=== PATIENT | female | born 1965 | race Caucasian/White ===

== ENCOUNTER 2020-02-28 10:31 | Outpatient (CLI) | payer OTHER, SELFPAY ==
--- NOTE | ~2020-02-28 | MM_ITS ---
EXAMINATION: MM screening [facility] BI w yuly HISTORY: Screening TECHNIQUE: Craniocaudal and mediolateral oblique 3-D tomosynthesis images were obtained and synthetic 2-D images were generated. CAD analysis was submitted and interpreted. COMPARISON: Comparison to multiple prior studies sequentially, with oldest reviewed study dated 11/2012. BREAST PARENCHYMAL COMPOSITION: There are scattered areas of fibroglandular density. FINDINGS: Bilateral breast asymmetries are stable. There is no evidence of suspicious mass, calcifica tion, or architectural distortion to suggest malignancy in either breast. There has been no suspiciou s interval change. IMPRESSION: 1. No mammographic evidence of malignancy. 2. Recommend routine screening mammography in one year. BI-RADS Category 2: Benign finding(s). Reviewed, dictated and finalized at location A.
== END 2020-02-28 10:32 | disposition home or self-care (01) ==
PROVIDERS: PCP Family Medicine; Visit Provider Family Medicine
DX: Z12.31 Encounter for screening mammogram for malignant neoplasm of breast (principal)
CPT/HCPCS: 77063; 77067

== ENCOUNTER → 2020-08-31 00:44 | Outpatient (CLI) | payer OTHER, SELFPAY ==
[2020-08-31 19:48] LABS: SARS-CoV-2 RNA PCR Negative
== END ==
PROVIDERS: PCP Physician Assistant; Visit Provider Internal Medicine Gastroenterology
DX: Z01.812 Encounter for preprocedural laboratory examination (principal); Z20.828 Contact with and (suspected) exposure to other viral communicable diseases
CPT/HCPCS: C9803; U0003; U0005

== ENCOUNTER 2020-09-04 01:08 | Day surgery (SDC) | payer OTHER, SELFPAY ==
[2020-08-22 10:03] VITALS: BMI 28.8
[2020-09-04 11:12] VITALS: BP 142/88; PULSE 97; RESP 22; TEMP 37; O2SAT 98; BMI 28.6
[2020-09-04] MEDS: LACTATED RINGERS 1,000 ML 150 ML IV CONT (11:36)
--- NOTE | 2020-09-04 12:17 | WPDGICN ---
GI Consult Note Consult date/time: 09/04/20 12:17 HPI: Reason for visit is colonoscopy. Impression: Screening colonoscopy. HLD. Hypothyroidism. Recommendation: Colonoscopy. History: This very pleasant lady is being evaluated for colon cancer polyp screening. GI review systems negative. This is her 1st colonoscopy. Physical examination: General: very pleasant patient in no acute distress. HEENT: Head was normocephalic sclerae is clear mouth without masses neck was supple. Heart: Rate rhythm regular without S3 or S4. Lungs: CTA. Abdomen: Soft with no guarding or rigidity. Bowel sounds were active. Neurologic: Cranial nerves 2 through 12 intact. No focal defects. No clonus. Musculoskeletal system: Revealed no joint tenderness or swelling no muscle atrophy. Extremities: Reveal no significant edema. Skin: Warm and dry with normal turgor. Mental status: intact. Patient is alert and oriented. Review of Systems Review of Systems: All systems reviewed & are unremarkable except as noted in HPI and below PMFSH Past Medical History Medical History Chronic left sacroiliac joint pain Hypercholesterolemia Hyperlipidemia LDL goal <100 Hypothyroidism Hypothyroidism determined by thyroid function test Family History Family History Father Acute myocardial infarction Mother Family history of kidney disease Grandparent Family history of malignant neoplasm of breast in first degree relative Social History Social History Smoking status: Never smoker Second hand tobacco smoke exposure: No Alcohol intake: current Substance use: never Substance use type: does not use Living arrangements: with family Gender identity (if verbalized by the patient): Female Spiritual care concerns: No Meds Home Medications and Allergies Home Medications Medication Instructions Recorded Confirmed Type atorvastatin 20 mg tablet 20 mg PO DAILY #90 tablet 08/13/20 08/22/20 Rx levothyroxine 50 mcg tablet 50 mcg PO DAILY #90 tablet 08/13/20 08/22/20 Rx levothyroxine 75 mcg tablet 75 mcg PO 3XW #90 tablet 08/13/20 08/22/20 Rx Fish Oil-Vit D3 2 cap PO DAILY 08/22/20 08/22/20 History Women's 50 Plus Multivitamin 1 cap PO DAILY 08/22/20 08/22/20 History calcium carbonate [Calcium 600] 600 mg PO DAILY 08/22/20 08/22/20 History Allergies Allergy/AdvReac Type Severity Reaction Status Date / Time No Known Allergies Allergy Unknown Unverified 09/04/20 11:11 Vital Signs Vital Signs - 24 hr 09/04/20 11:12 Temperature 37.0 C Pulse Rate 97 Respiratory Rate 22 H Blood Pressure 142/88 H Pulse Oximetry 98
[2020-09-04 12:41] VITALS: BP 96/64; PULSE 86; RESP 22; O2SAT 96
[2020-09-04 12:51] VITALS: BP 105/73; PULSE 74; RESP 20; O2SAT 97
[2020-09-04 13:01] VITALS: BP 117/81; PULSE 76; RESP 18; O2SAT 98
== END 2020-09-04 13:19 | disposition home or self-care (01) ==
PROVIDERS: PCP Physician Assistant; Visit Provider Internal Medicine Gastroenterology
PROC: 0DJD8ZZ Inspection of Lower Intestinal Tract, Via Natural or Artificial Opening Endoscopic (ICD-10-PCS; CPT 45378; principal; 2020-09-04 12:30)
DX: Z12.11 Encounter for screening for malignant neoplasm of colon (principal); K57.30 Diverticulosis of large intestine without perforation or abscess without bleeding; E78.5 Hyperlipidemia, unspecified; E03.9 Hypothyroidism, unspecified
CPT/HCPCS: 45378; J2001; J2704; J7120

== ENCOUNTER 2021-05-13 14:41 | Outpatient (CLI) | payer OTHER, SELFPAY ==
--- NOTE | ~2021-05-13 | MM_ITS ---
EXAMINATION: MM screening [facility] BI w yuly HISTORY: Screening mammogram TECHNIQUE: Craniocaudal and mediolateral oblique 3-D tomosynthesis images were obtained and synthetic 2-D images were generated. CAD analysis was submitted and interpreted. COMPARISON: 02/28/2020, 10/19/2018, 07/23/2017 BREAST PARENCHYMAL COMPOSITION: There are scattered areas of fibroglandular density. FINDINGS: There is no evidence of suspicious mass, calcification, or architectural distortion to sugg est malignancy in either breast. There has been no suspicious interval change. IMPRESSION: 1. No mammographic evidence of malignancy. 2. Recommend routine screening mammography in one year. BI-RADS Category 1: Negative Reviewed, dictated and finalized at location A. NDER FEEDER
== END 2021-05-13 14:42 | disposition home or self-care (01) ==
PROVIDERS: Visit Provider Family Medicine
DX: Z12.31 Encounter for screening mammogram for malignant neoplasm of breast (principal)
CPT/HCPCS: 77063; 77067

== ENCOUNTER 2022-04-22 14:57 | Outpatient (CLI) | payer OTHER, SELFPAY ==
--- NOTE | ~2022-04-22 | DEXA_ITS ---
Bone Density Report Name: CLARISSE RODRIGUEZ Age: 57 Sex: Female Ethnicity: White Date of : 1965 Indication: postmenopausal; screening for osteoporosis; Referring Provider: FAIZAN HERRING Study: Bone densitometry was performed. Exam Date: April 22, 2022 Accession number: [id number] Bone Density: Region BMD T-score Z-score Classification AP Spine(L1-L4) 0.985 -0.6 0.5 Normal Femoral Neck (Left) 0.827 -0.2 0.9 Normal Total Hip (Left) 0.977 0.3 1.0 Normal Femoral Neck (Right) 0.812 -0.3 0.7 Normal Total Hip (Right) 0.944 0.0 0.7 Normal Total Hip Mean 0.961 0.2 0.9 Normal World Health Organization criteria for BMD impression classify patients as: Normal (T-score at or above -1.0), Osteopenia (T-score between -1.0 and -2.5), or Osteoporosis (T-score at or below -2.5). 10-year Fracture Risk: FRAX not reported because: All T-scores for Spine Total, Hip Total, Femoral Neck at or above -1.0 Clinical Information Provided by Patient: Has used the following medications: Calcium Patient maximum height was 65.5 Menopause Age: 52 Onset of menses at age 18 Number of children 2 Impression: The patient has normal bone mass. Discussion: BONE DENSITY IS ABOVE THE MINIMUM DESIRABLE LEVEL AT ALL SKELETAL SITES TESTED. This patient?s bone mineral density is above the minimum desirable level (T-score -1.0 or better) at all sites measured. The patient should follow a healthful lifestyle (good nutrition with adequate calcium and vitamin D, and appropriate weight-bearing exercise). Follow-Up: Consider repeating this study in 5 years or sooner if there is some new clinical indication. Reported by: [facility] on 04/22/2022 3:21:00 PM. Reviewed, dictated and finalized at location A. [facility]
== END 2022-04-22 14:58 | disposition home or self-care (01) ==
PROVIDERS: PCP Family Medicine; Visit Provider Family Medicine
DX: Z78.0 Asymptomatic menopausal state (principal)
CPT/HCPCS: 77080

== ENCOUNTER → 2022-08-25 08:26 | Outpatient (CLI) | payer OTHER, SELFPAY ==
--- NOTE | ~2022-08-25 | CT_ITS ---
EXAMINATION: CT pelvis wo con DATE: 08/25/2022 08:38 INDICATION: Chronic left groin pain TECHNIQUE: Computed tomography (CT) of the pelvis was performed without intravenous contrast. The dos e-length product was 384.00 mGy-cm. Automated exposure control and iterative reconstruction technique were employed. Automated exposure control and iterative reconstruction technique were employed. COMPARISON: None FINDINGS: Nonobstructive bowel pattern. Normal appendix. Colonic diverticulosis without evidence for diverticulitis. No abnormal pelvic masses or fluid collections. No free air. Mild lumbar spondylosis. No evidence for hernia. Bladder is unremarkable. IMPRESSION: 1. No acute abnormality. No findings to explain patient's symptoms. Reviewed, dictated and finalized at location D. RT PRE COOKER
== END ==
PROVIDERS: PCP Family Medicine; Visit Provider Surgery
DX: R10.32 Left lower quadrant pain (principal)
CPT/HCPCS: 72192

== ENCOUNTER 2022-11-05 12:50 | Outpatient (CLI) | payer OTHER, SELFPAY ==
--- NOTE | ~2022-11-05 | MM_ITS ---
EXAMINATION: MM screening [facility] BI w yuly HISTORY: Screening mammogram TECHNIQUE: Craniocaudal and mediolateral oblique 3-D tomosynthesis images were obtained and synthetic 2-D images were generated. CAD analysis was submitted and interpreted. COMPARISON: 05/13/2021, 02/28/2020, 10/19/2018 BREAST PARENCHYMAL COMPOSITION: There are scattered areas of fibroglandular density. FINDINGS: No suspicious mass, calcification, or architectural distortion are identified in either yung ast to suggest malignancy. There has been no suspicious interval change. IMPRESSION: 1. No mammographic evidence of malignancy. 2. Recommend routine screening mammography in one year. BI-RADS Category 1: Negative Reviewed, dictated and finalized at location A.
== END 2022-11-05 12:51 | disposition home or self-care (01) ==
LOC: ANHIMG 12:52
PROVIDERS: PCP Family Medicine; Visit Provider Family Medicine
DX: Z12.31 Encounter for screening mammogram for malignant neoplasm of breast (principal)
CPT/HCPCS: 77063; 77067

== ENCOUNTER 2023-10-02 16:35 | Emergency (ER) | payer OTHER, SELFPAY ==
--- NOTE | ~2023-10-02 | XR_ITS ---
EXAM: XR finger 4th RT min 2V DATE: 10/02/2023 17:51 HISTORY: laceration . COMPARISON: None available. FINDINGS: Normal mineralization. Minimally comminuted fracture at the tip of the right fourth distal tuft. No lytic or blastic lesion. Joint spaces and physes are maintained. No erosion or periosteal c hange. Soft tissue laceration over the fracture site. IMPRESSION: Minimally comminuted fracture at the tip of the right fourth distal tuft. Reviewed, dictated and finalized at location K.
[2023-10-02 16:42] VITALS: BP 140/87; PULSE 86; RESP 16; TEMP 37.1; O2SAT 97
--- NOTE | 2023-10-02 16:43 | ED.WOUNDLAC ---
HPI - Wound/Laceration General Chief Complaint: Wound/Laceration Stated Complaint: Cut Finger Rt Hand Time Seen by Provider: 10/02/23 16:43 Source: patient Mode of arrival: ambulatory Limitations: no limitations History of Present Illness HPI narrative: 58 yo F presents with laceration to R ring finger. Reached under lawnmower while it was running to clean out clogged grass and blade cut her finger. ROM and distal NV intact. Bleeding on arrival. Tetanus UTD. All systems reviewed and negative except as noted above. Related Data Home Medications Medication Instructions Recorded Confirmed Fish Oil-Vit D3 2 cap PO DAILY 08/22/20 10/02/23 Women's 50 Plus Multivitamin 1 cap PO DAILY 08/22/20 10/02/23 calcium carbonate 600 mg calcium 600 mg PO DAILY 08/22/20 10/02/23 (1,500 mg) tablet (Calcium) Allergies Allergy/AdvReac Type Severity Reaction Status Date / Time No Known Allergies Allergy Unknown Verified 10/02/23 16:37 Review of Systems Review of Systems: CONSTITUTIONAL: Denies fever, chills, or sweats. EYES: Denies visual changes, redness, or discharge. ENT: Denies rhinorrhea, congestion, sore throat, or otalgia. CARDIOVASCULAR: Denies chest pain, palpitations, or edema. RESPIRATORY: Denies cough or dyspnea. GASTROINTESTINAL: Denies abdominal pain, nausea, vomiting, or diarrhea. GENITOURINARY: Denies dysuria or hematuria. SKIN: Reports laceration to distal aspect of right ring finger. MUSCULOSKELETAL: Denies back pain, joint pain, or myalgia. NEUROLOGIC: Denies headache, numbness, or weakness. PSYCHIATRIC: Denies anxiety or depression. All other systems reviewed are negative, except as documented in HPI. [facility] Past Medical History Medical History (Updated 10/02/23 @ 18:09 by Enedelia Sinha NP) Chronic left sacroiliac joint pain Diverticula, colon Hypercholesterolemia Hypothyroidism Left inguinal hernia Surgical History Surgical History Hx laparoscopic cholecystectomy 2012 Family History Family History Father Acute myocardial infarction Mother Family history of kidney disease Grandparent Family history of malignant neoplasm of breast in first degree relative Social History Social History (Updated 10/05/22 @ 14:46 by Ashely Nayak [facility]) Smoking status: Never smoker Second hand tobacco smoke exposure: No Alcohol intake: current Alcohol use details: consumes 1 glass of wine weekly Substance use: never Substance use type: does not use Lack of Transportation: No Lack of Food: Never True Current Housing: I Have Housing Concerned About Future Housing: No Difficulty Paying Gas/Electric Bills: No Difficulty Paying for Meds: No Currently Unemployed: No Education: Bachelor's Degree Living arrangements: with family Occupation/Education: occupation Gender identity (if verbalized by the patient): Female Spiritual care concerns: No Agree to blood products: Yes Comments At time of signature, agree with nursing past medical, surgical, social and family history. There is no relevant family history pertinent to the presenting complaint. Exam Narrative: GENERAL: This is a well-nourished, well-developed patient, in no apparent distress. HEAD: normocephalic, atraumatic. EYES: PERRL. Sclera clear/white. Vision is grossly intact. EARS: External ears normal NOSE: External nose normal NECK: Neck supple, non-tender without lymphadenopathy, masses or thyromegaly. CARDIOVASCULAR: Regular rate and rhythm without murmurs, gallops, or rubs. RESPIRATORY: Clear to auscultation. Breath sounds equal bilaterally. No wheezes, rales, or rhonchi. SKIN: warm, Dry, with no suspicious lesions or rash, good texture and turgor. Laceration to distal aspect of right finger. bleeding controlled. Laceration is irregular, totaling approximately 5 cm N
== END 2023-10-02 18:16 | disposition home or self-care (01) ==
PROVIDERS: Emergency Provider Nurse Practitioner Family; PCP Family Medicine
DX: S62.634B Displaced fracture of distal phalanx of right ring finger, initial encounter for open fracture (principal); W28.XXXA Contact with powered lawn mower, initial encounter; E78.00 Pure hypercholesterolemia, unspecified; E03.9 Hypothyroidism, unspecified
CPT/HCPCS: 12042; 29130; 73140; 96372; 99213; 99214; G0463

== ENCOUNTER 2023-11-19 08:07 | Outpatient (CLI) | payer OTHER, SELFPAY ==
--- NOTE | ~2023-11-19 | MM_ITS ---
EXAMINATION: MM screening [facility] BI w yuly HISTORY: Screening mammogram TECHNIQUE: Craniocaudal and mediolateral oblique 3-D tomosynthesis images were obtained and synthetic 2-D images were generated. CAD analysis was submitted and interpreted. COMPARISON: 11/05/2022, 05/13/2021 bilateral screening mammogram examinations BREAST PARENCHYMAL COMPOSITION: There are scattered areas of fibroglandular density. FINDINGS: There is no evidence of suspicious mass, calcification, or architectural distortion to sugg est malignancy in either breast. There has been no suspicious interval change. IMPRESSION: 1. No mammographic evidence of malignancy. 2. Recommend routine screening mammography in one year. BI-RADS Category 1: Negative Reviewed, dictated and finalized at location B.
== END 2023-11-19 08:08 | disposition home or self-care (01) ==
LOC: ANHIMG 08:13
PROVIDERS: PCP Family Medicine; Visit Provider Family Medicine
DX: Z12.31 Encounter for screening mammogram for malignant neoplasm of breast (principal)
CPT/HCPCS: 77063; 77067

== ENCOUNTER 2024-12-08 08:11 | Outpatient (CLI) | payer OTHER, SELFPAY ==
--- NOTE | ~2024-12-08 | MM_ITS ---
EXAMINATION: MM screening [facility] BI w yuly HISTORY: Screening TECHNIQUE: Craniocaudal and mediolateral oblique 3-D tomosynthesis images were obtained and synthetic 2-D images were generated. CAD analysis was submitted and interpreted. COMPARISON: Comparison to multiple prior studies sequentially, with oldest reviewed study dated 07/23. BREAST PARENCHYMAL COMPOSITION: Not dense: There are scattered areas of fibroglandular density. FINDINGS: There is no evidence of suspicious mass, calcification, or architectural distortion to sugg est malignancy in either breast. There has been no suspicious interval change. IMPRESSION: 1. No mammographic evidence of malignancy. 2. Recommend routine screening mammography in one year. BI-RADS Category 1: Negative Reviewed, dictated and finalized at location []
--- OUTSIDE RECORDS SUMMARY | 2024-12-08 08:18 | XMS_ITS | Clinical Summary ---
Author Organization [facility] Address [address], [address] [address] Phone Care Team Providers Care Car Hostler Name Role Phone Dragan Martell Primary Care Provider [phone] Medications polyethylene glycol (MIRALAX) Powder Use entire 255g bottle with 64oz of clear liquid as directed for colonoscopy prep. 255 g 0 7 Active Social History Tobacco Use Types Packs/Day Years Used Date Smoking Tobacco: Never Assessed Comments Unknown Sex and Gender Information Value Date Recorded Sex Assigned at Not on file Legal Sex Female 2:26 PM CDT Gender Identity Not on file Sexual Orientation Not on file Plan of Treatment Health Maintenance Due Date Last Done Comments Hepatitis C Virus (HCV) Screening 1965 TdaP Immunization 1965 Hepatitis B Immunization (1 of 3 - 19+ 3-dose series) 1986 Pap Smear 01/07/1988 Cervical Cancer Screening (CCS) 1997 HPV/Cotest 1997 Cologuard 2017 Immunochemical Fecal Occult Blood 2017 Mammogram 2017 Pneumococcal Immunization (50+ years) (1 of 1 - PCV) 2017 Zoster Immunization (2 of 2) 05/28/2019 04/02/2019 Influenza Immunization (#1) 2024 09/0 09/2019, 04/16/2019, 04/03/2018 SARS-COV-2 Immunization ( season) 2024 12/04/2021, 06/03/2021, 09/06/2020, Additional history exists Colonoscopy 09/04/2030 09/04/2020 Colorectal Cancer Screening 09/04/2030 Respiratory Syncytial Virus (RSV) Immunization (Adult) (1 - 1-dose 75+ series) 2042 DTaP/Tdap/Td Immunization Discontinued 05/20/2020 Meningococcal Immunization (ACWY) Aged Out No longer eligible based on patient's age to complete this topic Pneumococcal Immunization Combined Aged Out No longer eligible based on patient's age to complete this topic Rotavirus Immunization Aged Out No lo nger eligible based on patient's age to complete this topic Procedures Procedure Name Priority Date/Time Associated Diagnosis Comments COLONOSCOPY Routine 09/04/2020 from Last 3 Months or Most Recently Relevant to Health Maintenance Results * COLONOSCOPY (09/04/2020) Eduardo Harley DO PROCEDURE/MINOR SURGICAL ORDERA BLES Final Result from Last 3 Months or Most Recently Relevant to Health Maintenance Care Teams Car Hostler Relationship Specialty Start Date End Date Dragan Martell, PAC [address] [place] [address] PCP - General Physician Hydraulic Rubbish Compactor Mechanic 08/22/20
--- OUTSIDE RECORDS SUMMARY | 2024-12-08 08:18 | XMS_ITS | Clinical Summary ---
Author Organization [facility] Address [address] [place] [address] Care Team Providers Care Staff Development Educator Name Role Phone Rohan Rome MD Primary Care Provider Source Comments [facility],non-owned Affiliates and Associated Physician Practices is amultiple site organization consisting of ambulatory clinics and hospital sitesin [place] and [place]. This disclosure is being madepursuant to the Care Everywhere program and may not contain all information available regarding this patient. Last updated 18.[facility] Allergies No known active allergies Medications * Be aware that medications may not be up to date on this document. Alwaysverify current medications with the patient. levothyroxine (SYNTHROID) 50 MCG tablet Take 50 mcg by mouth daily before breakfast Active atorvastatin (LIPITOR) 20 MG tablet Take 20 mg by mouth at bedtime Active Family History Medical History Relation Name Comments Other - Hepatic/Liver Father Fatty liver disease Autoimmune Disease Mother Relation Name Status Comments Father Mother Social History Tobacco Use Types Packs/Day Years Used Date Smoking Tobacco: Never Smokeless Tobacco: Never Comments Unknown Sex and Gender Information Value Date Recorded Sex Assigned at Not on file Legal Sex Female 6:44 AM CDT Gender Identity Not on file Sexual Orientation Not on file Last Filed Vital Signs Vital Sign Reading Time Taken Comments Blood Pressure 114/80 01/28/2018 11:22 AM CDT Pulse 87 01/28/2018 11:22 AM CDT Temperature 37 C (98.6 F) 01/28/2018 11:22 AM CDT Respiratory Rate 16 01/28/2018 11:22 AM CDT Oxygen Saturation 98% 01/28/2018 11:22 AM CDT Inhaled Oxygen Concentration - - Weight 80.7 kg (178 lb) 01/28/2018 11:22 AM CDT Height 165.1 cm (5' 5) 01/28/2018 11:22 AM CDT Body Mass Index 29.62 01/28/2018 11:22 AM CDT Plan of Treatment Health Maintenance Due Date Last Done Comments COLOGUARD (AGES 45-75) - COL ON CA SCREENING 1965 COLON MONITORING 1967 COLONOSCOPY - COLON CA SCREENING 1967 CT COLONOGRAPHY - COLON CA SCREENING 1967 Colorectal Cancer Screening 1967 FIT - COLON CA SCREENING 1967 FLEX SIG - COLON CA SCREENING 1967 MAMMOGRAM 1967 HIV SCREENING 1982 HEPATITIS C SCREENING 01/01/1985 DTAP/TDAP/TD VACCINES (1 - Tdap) 1986 HEPATITIS B VACCINE (1 of 3 - 19+ 3-dose series) 1986 PNEUMOCOCCAL VACCINE 50+ (1 of 1 - PCV) 2017 ZOSTER VACCINE (1 of 2) 2017 SCREENING FOR DIABETES 01/28/2018 COVID-19 VACCINE (1 - 2023-2 5 season) 2024 DEPRESSION SCREENING 06/28/2024 INFLUENZA VACCINE (Season Ended) 2025 HIB VACCINE Aged Out No longer eligi ble based on patient's age to complete this topic HPV VACCINE Aged Out No longer eligi ble based on patient's age to complete this topic MENINGOCOCCAL (Group B) VACC INE SHARED DECISION-MAKING Aged Out No longer eligibl e based on patient's age to complete this topic MENINGOCOCCAL GROUPS A/C/Y/W VACCINE Aged Out No longer eligible b ased on patient's age to complete this topic Insurance [employer] Care Teams Staff Development Educator Relationship Specialty Start Date End Date Rohan Rome MD [address] [place] [address] PCP - General Family Medicine 01/28/18
== END 2024-12-08 08:12 | disposition home or self-care (01) ==
LOC: ANHIMG 08:14
PROVIDERS: PCP Family Medicine; Visit Provider Family Medicine
DX: Z12.31 Encounter for screening mammogram for malignant neoplasm of breast (principal)
CPT/HCPCS: 77063; 77067

== ENCOUNTER 2025-05-02 13:47 | Outpatient (CLI) | payer OTHER, SELFPAY ==
--- NOTE | 2025-05-02 | ECG_ITS ---
Test Date: 2025-05-02 13:08:22 Measurements Intervals [place] Rate: 61 P: 32 [place]: 154 QRS: 34 QRSD: 90 T: 60 QT: 395 QTc: 399 Interpretive Statements SINUS RHYTHM POSSIBLE RIGHT VENTRICULAR CONDUCTION DELAY [RSR (QR) IN V1/V2] ANTEROSEPTAL T-WAVE ABNORMALITY, CONSIDER ISCHEMIA ABNORMAL ECG No previous ECG available for comparison Electronically Signed On 05-02-2025 14:44:33 SAP PI DEVELOPER by Fer Peres M.D.
--- OUTSIDE RECORDS SUMMARY | 2025-05-03 13:32 | XMS_ITS | Clinical Summary ---
Author Organization [facility] Address [address] [place] [address] Care Team Providers Care Strategic Planning Consultant Name Role Phone Rohan Rome MD Primary Care Provider Source Comments [facility],non-owned Affiliates and Associated Physician Practices is amultiple site organization consisting of ambulatory clinics and hospital sitesin [place], [place], [place] and [place]. This disclosure is being madepursuant to the Care Everywhere program and may not contain all information available regarding this patient. Last updated 18.[facility] Allergies No known active allergies Medications * [...] of 2) 2017 SCREENING FOR DIABETES 01/28/2018 DEPRESSION SCREENING 06/28/2024 COVID-19 VACCINE (1 - 2023-2 5 season) 2025 INFLUENZA VACCINE (#1) 2025 HIB VACCINE Aged Out No longer [...] complete this topic Insurance [employer] Care Teams Strategic Planning Consultant Relationship Specialty Start Date End Date Rohan Rome MD [address] [place] [address] PCP - General Family Medicine 01/28/18
--- OUTSIDE RECORDS SUMMARY | 2025-05-03 13:32 | XMS_ITS | Data Portability ---
Author Organization [facility] Address [address] [place] [address] Assessment Encounter Date Assessment Date Assessment LastModified by Organization Details LastModified Time 05/13/2020 05/13/2020 Annual gynecological exam performed. Patient will come back in a year unless there are new symptoms. [email or web address] Not available 05/13/2020 09:40:17 Plan of Treatment Reminders Order Date Submit Date Provider Last Modified By Organization Details Last Modified Time Details Appointments None record ed. Lab None record ed. Referral None record ed. Procedures None record ed. Surgeries None record ed. Imaging None record ed. Medication Orders None record ed. Patient TargetsNo targets recorded. Patient InstructionsNo instructions recorded. Reason for Referral None Reported. Results Created Date Observation Date Name Description Value Unit Range Abnormal Flag Note LastModifiedBy Organization Detail LastModifiedTime 05/13/20 20 05/16/2020 pap, LB Pap test thin prep Negati ve for Intrae pithel ial Lesion or Malign hudson normal ACCES SOBIA #: [id number] Sourc e: Cervi yudith/E ndoce rvica l LMP: 06/28 Date Taken : 05/13 Speci men Type: ThinP rep Vial Date Repor isak: 05/16 Clini yudith Data: Cytot ech: Irineo Stearns z, CT( CP) Date Repor isak: 05/15 Speci men Adequ acy: Satis facto ry for evalu ation Gener al Categ oriza tion: NEGAT STEFANY FOR INTRA EPITH ELIAL LESIO N OR MALIG CHERISE Inter preta tion/ Resul t: Atrop hy This speci men has been alaina zed by the ThinP rep Imagi ng Syste m, an inter activ e compu ter syste m which louise ts the lab in the horace soares of ThinP rep Pap Test slide jessenia romero marty, the slide was revie wed by a Cytot echno logis t and/o r Patho logis tBenton Lyons N A A S S A Y S R E P O R T TEST NAME RESUL TS ----- ---- ----- -- HPV High Risk Horace patrick (TMA) ThinP rep Vial The human papil lomav irus (HPV) High Risk Horace patrick is an FDA-a pprov ed in-vi tro ampli fied nucle ic acid test for the quali tativ e detec tion of E6/E7 viral mRNA. Resul ts shoul d be corre lated with patie nt prese ntati on, histo ry, cervi yudith cytol ogy and other clini yudith and labor atory findi ngs. See https ://Credii/s ites/ defau lt/fi -0 - 37733 _002_ 01.pd f for shane patrick. Test perfo rmed by [facility], d/b/a [facility], [address] [facility], [place] [address] , Rei Catherine ra, DO, Labor atory [facility]. HPV High Risk *HPV NOT DETEC ISAK (TYPE S 16, 18, 31, 33, 35, 39, 45, 51, 52, 56, 58, 59, 66, 68) *HPV: The human papil lomav irus (HPV) High Risk Horace patrick is an FDA-a pprov ed in-vi tro ampli fied nucle ic acid test for the quali tativ e detec tion of E6/E7 viral mRNA. Resul ts shoul d be corre lated with patie nt prese ntati on, histo ry, cervi yudith cytol ogy and other clini yudith and labor atory findi ngs. See https ://Credii/s ites/ defau lt/fi les/ 018-0 - 23928 _002_ 01.pd f for furth er infor arnie n. Test perfo rmed by [facility] [employer], d/b/a [employer], [address], [place] [address] , Rei Catherine ra, DO, Labor ator [facility]. End of Repor t Techn ical servi ragini provi ded by [facility] [employer], d/b/a [employer], [address] [place] [address] Eleazar Keenan MD, [facility]. Case revie wed and diagn osis rende red at [facility] [employer], d/b/a [employer], [address] [place] [address] Eleazar Keenan MD, [facility]. CONFI DENTI AL Not Available [facility] ([facility]) [address] [place] [address], [place], [address], 05/16/2020 08:34:42 05/13/20 20 05/16/2020 HPV DNA, high- risk HPV high risk NOT DETECT ED normal Not Available [facility] ([facility]) [address] [place] [address], [place], [address], 05/16/2020 08:34:42 Result Notes None recorded. Problems Name Problem SNOMED Code Status Onset Date Resolution Date Notes Provider Name and Address Organization Details Recorded Time Screenin g for malignan t neoplasm of cervix Active 2011 Pap Smear;Pr actice ID: 0001 Not Available [facility] 0 17:42:57 Screenin g for malignan t neoplasm of rectum Active 2011 Screenin g for malignan t neoplasm s of the rectum;P ractice ID: 0001 Not Available [facility] 0 17:42:57 Speciali zed medical examinat ion Completed 201104/09/2012 Gynecolo gical Examinat ion;Evangelista rded Elsewher e: No Locat ion: [facility] S ource: EHR Cytopathologist todd: N Practi ce ID: 0001 Raheem lable Time: 02:45:00 PM Not Available [facility] 0 17:42:57 Speciali zed medical examinat ion Active 2012 Routine gynecolo gical examinat ion;Prac tenzin ID: 0001 Not Available [facility] 0 17:42:57 Removal of intraute rine device Active 2012 REMOVAL OF IUD;Prac tenzin ID: 0001 Not Available [facility] 0 17:42:57 Insertio n of intraute rine contrace ptive device Active 2012 INSERTIO N OF IUD;Prac tenzin ID: 0001 Not Available [facility] 0 17:42:57 Pregnanc y test negative [id number] Active 2012 Negative Pregnanc y Test;Pra ctice ID: 0001 Not Available [facility] 0 17:42:57 Pain Active 2016 Lower abdomina l pain, unspecif ied;Prac tenzin ID: 0001 Not Available [facility] 0 17:42:[address] Concept Active 2016 Encntr for spindle sander exam (general ) (routine ) w/o abn findings ;Practic e ID: 0001 Not Available [facility] 0 17:42:[address] Concept Active 2016 Encntr for general adult medical exam w/o abnormal findings ;Recorde d Elsewher e: No Locat ion: [facility] S ource: EHR Cytopathologist todd: N Practi ce ID: 0001 Raheem lable Time: 10:00:00 AM Not Available [facility] 0 17:42:58 Problem Notes None recorded. Procedures Surgical History Date Name Laterality Status Provider Name and Address Organization Details Recorded Time Cholecystectomy completed Yani GOTTLIEB [facility] 05/13/2020 09:42:47 Imaging Results None recorded. Procedure Notes None recorded. Medical Equipment None Reported. Allergies No known drug allergies Medications Name Sig Start Date Stop Date Status Note LastModified by Organization Details LastModified Time atorvasta tin 20 mg tablet active Not Available Not Available Not Available lovastati n 10 mg tablet take 1 tablet by oral route every day with the evening meal 09/22 completed Prescrib ed Elsewher e: Yes Loca tion: Laura robert [facility] odify By: wai rojounter DateTime : 04/07/20 12 02:45:00 PM Not Available Not Available Not Available Synthroid 75 mcg tablet active Not Available Not Available Not Available Synthroid 50 mcg tablet active Not Available Not Available Not Available Vitamins and Minerals tablet active Prescrib ed Elsewher e: Yes Loca tion: Laura robert [facility] odify By: urszula aburto DateTime : 04/06/20 12 04:03:35 PM Not Available Not Available Not Available Calcio Naomi 500 mg tablet active Prescrib ed Elsewher e: Yes Loca tion: Laura robert [facility] odify By: urszula aburto DateTime : 04/06/20 12 04:03:35 PM Not Available Not Available Not Available calcium active Not Available Not Avail able Not Available Vitamin And Mineral active Not Available Not Available Not Available Tirosint 13 mcg capsule take 1 capsule by oral route every day active Prescrib ed Elsewher e: Yes Loca tion: Laura robert [facility] odify By: cmedical Encount er DateTime : 04/07/20 12 02:45:00 PM Not Available Not Available Not Available Afluria Qd (36 mos up)(PF)60 mcg (15 mcg x4)/0.5 mL IM syringe PHARMACY ADMINIST ERED active Not Available Not Available No t Available Vitals None Recorded Social History None recorded. Functional Status None recorded. Mental Status None recorded. Family History Relationship Description Onset Age of this Age Resolved Age Notes LastModified by Organization Details LastModified Time Paternal Uncle Diabetes mellitus [email or web address] Not available 2019 09:41:48 Maternal Grandmother Carcinoma in situ of breast [email or web address] Not available 2019 09:42:01 Maternal Grandmother Malignant neoplasm of bone [email or web address] Not available 2019 09:42:11 Mother Lupus erythematosu s [email or web address] Not available 2019 09:42:20 Father Disease of liver [email or web address] Not available 2019 09:42:39 Paternal Grandfather Disease of liver [email or web address] Not available 2019 09:42:39 Notes:Father: Liver disease Maternal grandmother: Cancer, breast, Bone Cancer Mother: Systemic lupus erythematosus Paternal grandfather: Liver disease Paternal uncle: Diabetes mellitus Medical History Condition Response Thyroid Problems Y High Cholesterol Y Gynecological History Statement/Question Response Current Control Method None Obstetrics History GPAL:G 0 P 0 0 0 0 Past Encounters Encounter ID Performer Location Encounter Start Date Encounter Closed Date Diagnosis/Indication Diagnosis SNOMED-CT Code Diagnosis ICD10 Code Diagnosis IMO Codes Diagnosis Note [id number] Elle Russell , [facility] [address] [address] 05/13/2020 09:38:55 05/15/2020 12:07:27 Gynecologic examination 72227577 Z01.419 Take Calcium with Vitamin D 12-1500mg daily. Do monthly self breast exams. It is advised to get annual flu shot in the fall and she could obtain at [facility] or [facility] care clinic. If you haven't received the Tdap vaccine in the last 10 years you should obtain one as well. Have mammogram yearly, bone density every 2-3 years and colonoscop y every 5-10 years depending on findings and history. Engage in daily exercise of low impact aerobic exercise 45-60 minutes 4-5 times weekly. Avoid tobacco and illicit drugs as well as using moderation with alcohol intake less than 1-2 8 oz beverages daily. This lifestyle behavior pattern will lead to less health conditions and longer life span. If BMI greater than 25 weight watchers or dietary consult advised. Questions have been answered. Patient appears to understand instructio ns, but if you have any further questions call or respond to this email from spouse Mongamous relationsh ip since 1984 No issues or concerns Mammo done wnl Cologuard wnl 2yrs ago. discussed next year either cologuard if no chnges; or complete colonoscop y Health Concerns Section Related Observation LastModified by Organization Detai ls LastModified Time None Recorded Concern Status LastModified by Organization Details LastModified Time None Recorded Advance Directives Directive None Recorded Payers Insurance Date Sequence Insurance Name Policy Number Policy Forman Covered Member ID Forman Member ID Guarantor Name 05/13/2020 1 [employer] (POS II) Josr Barbosa [id number] Nano Barbosa Notes Date Note Type Note Provider Name and Address Organization Details Recorded Time 0 text/html Annual GYNReported by PatientHistoryFor history, patient reportsno gynecologic complaints.Genitourina ry symptomsFor urinary symptoms, patient reportsno hematuriaandno incontinence. For vulva, patient reportsno genital lesion. For vagina, patient reportsnormal vaginal discharge. For menstrual cycle, (postmenopause since early 50's after removal of iud.).Breast symptomsFor breast, patient reportsno breast pain,no breast lump, andno nipple discharge.Endocrine symptomsFor sexual complaints, patient reportsno sexual complaints,no pain during intercourse, andnormal libido. For menopausal symptoms, patient reportsno menopausal symptomsandnormal vaginal lubrication.Psychologi yudith symptomsFor psychological symptoms, patient reportsno depression,no anxiety, andno pmdd.Preventative measuresFor preventive measures, patient reportsencourage self breast examination,encourage regular exercise,encourage no tobacco use,encourage regular mammograms starting age 40,mammogram performed within the past year, andup to date on colonoscopy screening. Elle Russell, [facility]- [address], [place], [address], [facility] 05/13/2020 10:35:46 OBGyn Episode Ob Episode Information Episode Created Date Number of Fetuses Patient Bloodtype Patient rh Status Prepregnancy Weight lbs Domestic Partner Domestic Partner Phone Father Name Bark Fitter Status 05/13/20 20 1 CLOSED Fetus Data First Name Last Name Admitted to NICU Weight (g) Sex Living Outcome Pediatric Complications Fetus ID Race Codes Race Delivery Type [id number] Vaginal Delivery Marcial Calculation Initial Marcial Date Initial Exam Date Initial Exam Provider Initial Ultrasound Date Last Menstrual Period Date Ultra Sound Weeks Gestation 0 Eighteen To Twenty Week Marcial Update Ultra Sound Date Fundal Height At Umbil Quickening Date Ultra Sound Latest Weeks Gestation Final Marcial Confirmed By Final Marcial Confirmed Date Final Marcial Date Ultra Sound Latest Days Gestation 0 0 Menstrual History Last Menstrual Date Menses Monthly On Bcp Conception Prior Menses Frequency Hcg Plus Date Menarche Onset Age Delivery Information Delivery Date Delivery Type Labor Anesthesia Weeks Gestation Incision Type Labor Labor Length Hrs Delivered By Post Complications Tubal Sterilization Discharge Date Comments 6 Discharge Information Feeding Method Contraceptive Method Maternal HG B and HCT Levels Ob Episode Information Episode Created Date Number of Fetuses Patient Bloodtype Patient rh Status Prepregnancy Weight lbs Domestic Partner Domestic Partner Phone Father Name Bark Fitter Status 05/13/20 20 1 CLOSED Fetus Data First Name Last Name Admitted to NICU Weight (g) Sex Living Outcome Pediatric Complications Fetus ID Race Codes Race Delivery Type [id number] Vaginal Delivery Marcial Calculation Initial Marcial Date Initial Exam Date Initial Exam Provider Initial Ultrasound Date Last Menstrual Period Date Ultra Sound Weeks Gestation 0 Eighteen To Twenty Week Marcial Update Ultra Sound Date Fundal Height At Umbil Quickening Date Ultra Sound Latest Weeks Gestation Final Marcial Confirmed By Final Marcial Confirmed Date Final Marcial Date Ultra Sound Latest Days Gestation 0 0 Menstrual History Last Menstrual Date Menses Monthly On Bcp Conception Prior Menses Frequency Hcg Plus Date Menarche Onset Age Delivery Information Delivery Date Delivery Type Labor Anesthesia Weeks Gestation Incision Type Labor Labor Length Hrs Delivered By Post Complications Tubal Sterilization Discharge Date Comments 4 Discharge Information Feeding Method Contraceptive Method Maternal HG B and HCT Levels
--- OUTSIDE RECORDS SUMMARY | 2025-05-03 13:32 | XMS_ITS | Clinical Summary ---
Author Organization [facility] Address [address], [address] [address] Phone Care Team Providers Care Glove Tagger Name Role Phone Dragan Martell Primary Care Provider [phone] Medications polyethylene glycol (MIRALAX) Powder Use entire [...] Cancer Screening (CCS) 1997 HPV/Cotest 1997 Cologuard 01/07/2012 Immunochemical Fecal Occult Blood 01/07/2012 Pneumococcal Immunization (50+ years) (1 of 1 - PCV) 2017 Zoster Immunization (2 of 2) 05/28/2019 04/02/2019 Influenza Immunization (#1) 2025 09/0 09/2019, 04/16/2019, 04/03/2018 SARS-COV-2 Immunization ( season) 2025 12/04/2021, 06/03/2021, 09/06/2020, Additional history exists Colonoscopy 09/04/2030 09/04/2020 Colorectal Cancer Screening 09/04/2030 Respiratory Syncytial Virus (RSV) Immunization (Adult) (1 - 1-dose 75+ series) 2042 DTaP/Tdap/Td Immunization Discontinued 05/20/2020 Human Papillomavirus (HPV) Immunization Aged Out No longer eligible based on patient's age to complete this topic Meningococcal Immunization (ACWY) Aged Out No longer [...] Recently Relevant to Health Maintenance Care Teams Glove Tagger Relationship Specialty Start Date End Date Dragan Martell, PAC [address] [place] [address] PCP - General Physician Culinary Instructor 08/22/20
== END 2025-05-02 13:48 | disposition home or self-care (01) ==
PROVIDERS: PCP Family Medicine; Visit Provider Podiatrist Foot & Ankle Surgery
DX: R03.0 Elevated blood-pressure reading, without diagnosis of hypertension (principal); R94.31 Abnormal electrocardiogram [ECG] [EKG]
CPT/HCPCS: 93005